=== PATIENT | male | born 1965 | race African-American/Black ===

== ENCOUNTER 2023-11-03 11:28 | Outpatient (CLI) | payer MEDICAID, SELFPAY | END 2023-11-03 23:59 | disposition home or self-care (01) | LOC: SDC 11:34 | PROVIDERS: PCP Nurse Practitioner Family; Referring Provider Internal Medicine Gastroenterology; Visit Provider Internal Medicine Gastroenterology | PROC: 0DJD8ZZ Inspection of Lower Intestinal Tract, Via Natural or Artificial Opening Endoscopic (ICD-10-PCS; CPT 45378; principal; 2023-06-09 09:10) | DX: Z01.818 Encounter for other preprocedural examination (principal) ==

== ENCOUNTER 2024-04-14 06:14 | Observation (INO) | payer MEDICAID, SELFPAY ==
[2024-04-14] VITALS (9 sets, daily range): BP systolic 125–159; BP diastolic 74–106; PULSE 78–110; RESP 16–19; TEMP 36.1–37.1; O2SAT 97–100; BMI 23.7; BMI 23.3
--- NOTE | 2024-04-14 06:25 | EX.ED.SAOD ---
HPI History of Present Illness Chief Complaint: Substance Abuse Informant: patient Narrative Narrative: 58-year-old male states he is requesting inpatient detox for heroin abuse/addiction. He states he has been using several times a day for the past 4 months, every day. He also occasionally uses THC and less commonly alcohol, used to use alcohol more heavily but states it hurts his abdomen now whenever he drinks so he stopped. He denies any blood in the stools, recent illness, fevers or chills. His last use of heroin was yesterday, he states he is feeling shaky and nauseated and a little sweaty. [facility] Medical History Loss of hearing Partial edentulism, class III Marijuana use Alcohol use Arthritis Syncope Heartburn Smoker History of edema Neuropathy Hepatitis C Essential hypertension Home Medications ?Medication ?Instructions ?Recorded ?Last Taken ?Type lisinopril 10 mg tablet 10 mg PO DAILY #30 tabs 03/08/14 Unknown Rx albuterol sulfate 90 mcg/actuation 2 puff inhalation Q4-6H PRN 05/06/23 Unknown History aerosol inhaler shortness of breath or wheezing amlodipine 10 mg tablet 10 mg PO DAILY 05/06/23 Unknown History loratadine 10 mg tablet 10 mg PO DAILY 05/06/23 Unknown History losartan 100 1 tab PO DAILY 05/06/23 Unknown History mg-hydrochlorothiazide 25 mg tablet Allergy/AdvReac Type Severity Reaction Status Date / Time No Known Allergies Allergy Verified 04/14/24 06:15 Surgical History History of dental surgery Social History household members: none current occupational status: unemployed Smoking Status: Current every day smoker tobacco type: cigarettes ROS ROS ED Constitutional Constitutional ED: Reports sweats; Denies chills or fever(s) Eyes Eyes: Denies change in vision or diplopia ENT ENT ED: Denies rhinorrhea or sore throat Cardiovascular Cardiovascular: Denies chest pain or palpitations Respiratory/Chest Respiratory/Chest: Denies cough or dyspnea Gastrointestinal Gastrointestinal: Reports nausea; Denies abdominal pain, diarrhea or vomiting Genitourinary Genitourinary ED: Denies dysuria or hematuria Musculoskeletal Musculoskeletal: Denies back pain or neck pain Integumentary Denies abscess or rash Neurologic Neurologic: Denies headache(s), paresthesias or weakness Psychiatric Psychiatric: Reports anxiety; Denies suicidal thoughts EXAM Physical Exam Const Vital Signs: 04/14/24 06:15 04/14/24 07:15 04/14/24 07:21 Temperature 97.4 F L 97.9 F Temperature Source Temporal Pulse Rate 107 H 78 78 Respiratory Rate 19 H 17 18 Blood Pressure 155/85 H 138/83 H 138/83 H Blood Pressure Mean 108 101 101 Pulse Ox 100 98 97 Oxygen Delivery Method Room Air Room Air Positive well nourished and well developed General Appearance ED: well developed and NAD HEENT Reports moist mucous membranes normocephalic and atraumatic Eyes PERRL and EOMs intact bilaterally Neck full ROM and supple Resp normal respiratory effort and clear to auscultation bilaterally Cardio regular rate, regular rhythm and no murmurs Cardio Narrative: Mild tachycardia GI non-tender and non-distended Auscultation: normoactive bowel sounds Palpation: soft Back/Spine no CVA tenderness General Back: other FROM Extremity normal to inspection General Extremety ED: Negative for edema, pulses abnormal or tenderness General Extremity: Negative for edema or pulses abnormal Neuro oriented x3, CN's II-XII intact bilaterally and no sensory deficits noted Sensorium / Orientation: awake and alert Motor Exam: strength 5/5 throughout Psych Mood & Affect: anxious Skin no rashes or lesions noted and no wounds MDM MDM MDM Narrative Medical decision making narrative: Labs and toxicology obtained and reviewed. Patient given Zofran and some tramadol for his withdrawal symptoms. Will discuss with hospitalist for admission to detox if bed available. Lab Data Attestation: I reviewed the patient's lab results. Labs: Laboratory Results - last 24 hr 04/14/24 06:45 WBC 9.0 RBC 5.55 Hgb 15.8 Hct 47.1 MCV 84.9 MCH 28.5 MCHC 33.5 RDW Std Deviation 38.7 RDW Coeff of [place] 12.6 Plt Count 358 MPV 10.0 Immature Gran % (Auto) 0.300 Neut % (Auto) 52.2 Lymph % (Auto) 33.8 [place] % (Auto) 9.4 Eos % (Auto) 3.9 Baso % (Auto) 0.4 Absolute Neuts (auto) 4.7 Absolute Lymphs (auto) 3.03 Nucleated RBC % 0 PT 13.4 INR 1.0 Sodium 139 Potassium 3.1 L Chloride 101 Carbon Dioxide 24.3 Anion Gap 14 BUN 14 Creatinine 1.06 Estim Creat Clear Calc 95.53 Est GFR (MDRD) Non-Af 82 BUN/Creatinine Ratio 13.6 Glucose 117 H Calcium 10.3 Total Bilirubin 0.43 AST 64 H ALT 41 Alkaline Phosphatase 106 Total Protein 8.9 H Albumin 4.8 Globulin 4.1 Albumin/Globulin Ratio 1.2 Ethyl Alcohol < 10.1 Management Discussion w/another healthcare provider: Hospitalist Discharge Plan Dx/Rx/DC Orders Clinical Impression: Opiate dependence, Opiate withdrawal Disposition Disposition: Acute Care Hospital [facility], [place]
[2024-04-14] MEDS: traMADol 50 MG Tablet 100 MG PO (06:54)
[2024-04-14] MEDS: Ondansetron ODT 4 MG Tablet 8 MG PO (06:54)
[2024-04-14 06:58] LABS: Absolute Lymphocyte Count 3.03 X10^3/uL (0.83-4.51); Absolute Neutrophil Count 4.7 X10^3/uL (2.0-7.7); Basophil# 0.04 X10^3/uL; Basophil% 0.4 % (0-1); Eosinophil# 0.35 X10^3/uL; Eosinophils% 3.9 % (0-5); Hematocrit 47.1 % (40-54); Hemoglobin 15.8 g/dL (13.0-16.5); Lymphocyte # 3.03 X10^3/ul (0.83-4.51); Lymphocyte % 33.8 % (19-41); Mean Corp Hgb Conc 33.5 g/dL (32-36); Mean Corpuscular Hgb 28.5 pg (27.0-32.0); Mean Corpuscular Volume 84.9 fL (80-94); Monocyte# 0.84 X10^3/uL; Monocyte% 9.4 % (0-10); NRBC Flagged by Analyzer 0 % (0-5); Neutrophil # 4.67 X10^3/uL (2.7-7.7); Neutrophil % 52.2 % (47-70); Platelet Count 358 K/mm3 (150-450); RBC Distribution Width CV 12.6 % (11.6-14.6); RBC Distribution Width SD 38.7 fl (35.1-43.9); Red Blood Count 5.55 M/mm3 (4.6-6.2)
[2024-04-14 07:07] LABS: Prothrombin Time (Protime)PT. 13.4 SECONDS (11.7-14.9)
--- NOTE | 2024-04-14 07:23 | PCM.HP.STD ---
HPI - General General Date of Admission: 04/14/24 Date of Service: 04/14/24 Chief Complaint: Desire for detoxification HPI Narrative JENN ALDANA, is a 58 M past medical history signal for essential hypertension, mild intermittent asthma opioid dependence who presented to the emergency department with desire for detoxification. Per patient he has been using heroin he snorts. 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 Patient did complain of feeling weak and lightheaded also did complain of chills. Denied any nausea no vomiting no abdominal pain. An assessment of opioid dependence at risk for withdrawal made admitted to regular nursing floor for further manage [facility] Medical History Loss of hearing Partial edentulism, class III Marijuana use Alcohol use Arthritis Syncope Heartburn Smoker History of edema Neuropathy Hepatitis C Essential hypertension Home Medications ?Medication ?Instructions ?Recorded ?Last Taken ?Type lisinopril 10 mg tablet 10 mg PO DAILY #30 tabs 03/08/14 04/13/24 Rx albuterol sulfate 90 mcg/actuation 2 puff inhalation Q4-6H PRN 05/06/23 04/13/24 History aerosol inhaler shortness of breath or wheezing amlodipine 10 mg tablet 10 mg PO DAILY 05/06/23 04/13/24 History loratadine 10 mg tablet 10 mg PO DAILY PRN allergy symptoms 05/06/23 Unknown History losartan 100 1 tab PO DAILY 05/06/23 04/13/24 History mg-hydrochlorothiazide 25 mg tablet cholecalciferol (vitamin D3) 25 25 mcg PO DAILY 04/14/24 04/13/24 History mcg (1,000 unit) capsule Allergy/AdvReac Type Severity Reaction Status Date / Time No Known Allergies Allergy Verified 04/14/24 06:15 Surgical History History of dental surgery Social History household members: none current occupational status: unemployed Smoking Status: Current every day smoker tobacco type: cigarettes ROS ROS Narrative GENERAL: chills, night sweats, HEENT: denies headache, sinus congestion, RESPIRATORY: denies cough, sputum production, CARDIAC: denies chest pain, palpitations, orthopnea, GASTROINTESTINAL: denies abdominal pain, nausea, GENITOURINARY: denies dysuria, urgency, frequency, EXTREMITY: denies swelling MUSCULOSKELETAL: denies current joint pain or tenderness NEUROLOGIC: denies focal numbness, weakness, tingling HEMATOLOGIC: denies easy bruising and/or hemorrhage INTEGUMENT: denies rashes PSYCHIATRIC: denies suicidal or homicidal ideation Vital Signs Vital Signs Vital Signs: 04/14/24 06:15 04/14/24 07:15 04/14/24 07:21 Temperature 97.4 F L 97.9 F Temperature Source Temporal Pulse Rate 107 H 78 78 Respiratory Rate 19 H 17 18 Blood Pressure 155/85 H 138/83 H 138/83 H Blood Pressure Mean 108 101 101 Pulse Ox 100 98 97 Oxygen Delivery Method Room Air Room Air Weight Weight: 88.4 kg Body Mass Index (BMI) 23.7 Physical Exam Narrative GENERAL: cooperative HEENT: Atraumatic; normocephalic EYES; Anicteric, Normal Conjunctiva NECK; supple, normal thyroid, RESPIRATORY: Diminished to auscultation CARDIOVASCULAR: Regular S1 S2, GI: soft, normoactive bowel sounds, : No Renal angle tenderness; EXTREMITIES: No edema, no clubbing, MUSCULOSKELETAL: no muscle wasting NEURO: Awake; no lateralizing signs. SKIN: No Rash PSYCH; Flat affect Results Lab / Micro Data 04/14/24 06:45 04/14/24 06:45 Labs: Laboratory Results - last 24 hr 04/14/24 06:45: WBC 9.0, RBC 5.55, Hgb 15.8, Hct 47.1, MCV 84.9, MCH 28.5, MCHC 33.5, RDW Std Deviation 38.7, RDW Coeff of [place] 12.6, Plt Count 358, MPV 10.0, Immature Gran % (Auto) 0.300, Neut % (Auto) 52.2, Lymph % (Auto) 33.8, [place] % (Auto) 9.4, Eos % (Auto) 3.9, Baso % (Auto) 0.4, Absolute Neuts (auto) 4.7, Absolute Lymphs (auto) 3.03, Nucleated RBC % 0, PT 13.4, INR 1.0 Assessment & Plan Assessment/Plan (1) Opiate withdrawal: PLAN: Plan Patient is a 58-year-old gentleman presented with acute opioid withdrawal 1. Acute opioid withdrawal - Patient has been admitted to regular nursing floor, managed buprenorphine taper along with other adjunctive medications for medical stabilization 2. Hypertension ? Blood pressure controlled, home medications continued with dose adjustment as needed 3. History of hep C ? Per patient completed treatment 4. Tobacco dependence ? Counseled on cessation, offered nicotine patch for tobacco cravings 5. Mild intermittent asthma ? Aerosol treatments as needed 6. DVT prophylaxis ? Low risk to encourage elevation Time spent in the patient's overall evaluation,decision-making process, review of diagnostic data, adjustment of management, discussion with other providers, nursing nursing and ancillary staff involved in patient's care documentation, 60 Minutes Advance planning; did discuss with the patient and family regarding advanced directives as well as CODE STATUS. Did explain the various scenarios involved ( FULL CODE, DNR CCA, DNR CCA with no intubation, and DNR CC and what each meant) patient elected to remain full code with CPR intubation if needed. Order was placed. Time spent on discussion 16 minutes. Charges/Coding Multi Select Codes Visit Charges Visit Charges: 98620 Init Hosp Hospitalists' Procedures Procedures: 82205 Advncd Care Plan 30 Min
[2024-04-14 07:26] LABS: Alcohol, Blood (Medical)-Serum < 10.1 mg/dL (<=10.0)
[2024-04-14 07:27] LABS: ALB/GLOB Ratio 1.2 RATIO (0.9-2.4); AST(SGOT) 64 U/L (<=37); Alanine Aminotransfer ALT/SGPT 41 U/L (<=46); Albumin, Serum 4.8 g/dL (3.5-5.0); Alkaline Phosphatase 106 U/L (40-129); Anion Gap 14 (5-15); BUN 14 mg/dL (4-19); BUN/Creat Ratio 13.6 RATIO (10-20); Calcium,Total 10.3 mg/dL (7.6-11.0); Carbon Dioxide 24.3 mmol/L (21.0-32.0); Chloride 101 mmol/L (98-108); Creatinine, Serum 1.06 mg/dL (0.70-1.20); EST Glomerular Filtration Rate 82 (>60); Estimated Creatinine Clearance 95.53 ml/min (50-250); Globulin 4.1 g/dL (2.2-4.2); Glucose 117 mg/dL (70-99); Potassium 3.1 mmol/L (3.3-5.1); Protein, Total 8.9 g/dL (5.9-8.4); Sodium Level 139 mmol/L (133-145); Total Bilirubin 0.43 mg/dL (0.00-1.30)
[2024-04-14 08:12] LABS: Amphetamine Urine NEGATIVE (<1000 ng/mL); Barbiturate Urine NEGATIVE (< 200 ng/mL); Benzodiazepine Urine NEGATIVE (< 200 ng/mL); Buprenorphine Urine NEGATIVE (< 200 ng/mL); Cocaine Urine PRESUMPTIVE POSITIVE (< 300 ng/mL); Fentanyl, Urine PRESUMPTIVE POSITIVE; Methadone Urine NEGATIVE (< 300 ng/mL); Opiates Urine PRESUMPTIVE POSITIVE (< 300 ng/mL); Oxycodone, Urine NEGATIVE (< 100 ng/mL); PCP Urine NEGATIVE (< 25 ng/mL); THC Urine PREUMTIVE POSITIVE (< 50 ng/mL)
[2024-04-14] MEDS: Lactated Ringers 1,000 ML 125 ML IV (11:00)
[2024-04-14] MEDS: Losartan Potassium 100 MG Tablet PO (11:04)
[2024-04-14] MEDS: amLODIPine 10 MG Tablet PO (11:04)
[2024-04-14] MEDS: hydroCHLOROthiazide 25 MG Tablet PO (11:04)
[2024-04-14] MEDS: Loratadine 10 MG Tablet PO (11:05)
[2024-04-14] MEDS: Gabapentin 300 MG Capsule PO ×2 (12:56→22:22)
[2024-04-14] MEDS: Acetaminophen 500 MG Tablet PO (12:56)
[2024-04-14] MEDS: cloNIDine HCl 0.1 MG Tablet PO (12:57)
[2024-04-14] MEDS: Ondansetron 8 MG Tablet PO (14:47)
[2024-04-14] MEDS: Methocarbamol 750 MG Tablet PO ×2 (14:47→20:53)
[2024-04-14] MEDS: hydrOXYzine PAM 25 MG Capsule 50 MG PO ×2 (14:47→20:52)
--- NOTE | 2024-04-14 15:08 | ADDICTION ---
Pt was met with to complete the ramp assessment, AUDIT, DUDIT, ASAM, CLARENCE, D/C Plan, and MSE. Pt reports he has been struggling with KELLY for his entire adult life and he has been in previous residential placement in [facility] and [facility] but he was unable to maintain sobriety after tx. Pt was engaged in d/c planning but pt was distracted d/t severe stomach pains and ongoing w/d sxs. Pt states that he is not interested in residential tx at this time, and he was provided information for accessing residential tx if he changes his mind. Pt was given information on MAT and OP tx options and pt reports a desire to explore MAT buprenorphine tx. Pt was referred to Dr. Bhakta and pt will be notified once his appt is able to be scheduled. Pt wants to f/u with IOP at [facility] and pt was informed that he can come to [facility], once he is d/c'd from [facility], for an assessment Mon-Fri between 8am and 4pm. Pt reports he has safe and stable housing in [place] and he denies any psychiatric needs, denies any SI/HI intent or plan, and he appears motivated for tx but struggling with cravings and w/d sxs that interfere with fx.
[2024-04-14] MEDS: Buprenorphine HCl 2 MG TAB.SUBL SL (17:50)
[2024-04-14] MEDS: traZODone 100 MG Tablet PO (22:22)
[2024-04-14] MEDS: Ibuprofen 600 MG Tablet PO (22:22)
[2024-04-14] MEDS: Dicyclomine 10 MG Capsule 20 MG PO (22:23)
[2024-04-15] MEDS: Buprenorphine HCl 2 MG TAB.SUBL SL ×3 (01:41→18:19)
[2024-04-15] MEDS: cloNIDine HCl 0.1 MG Tablet PO (01:45)
[2024-04-15] MEDS: Ondansetron 8 MG Tablet PO (01:45)
[2024-04-15 01:51] VITALS: BP 134/83; PULSE 113; RESP 16; TEMP 37.1; O2SAT 99
--- NOTE | 2024-04-15 07:27 | PCM.PN.HOSP ---
Reason for Visit Reason for Visit: Diagnoses Opioid use, unspecified with withdrawal (04/14/24) Subjective Subjective Patient seems symptoms markedly improved. Objective Data Objective Data Vital Signs: Vital Signs Temp Pulse Resp BP Pulse Ox O2 Del Method 98.8 F 113 H 16 134/83 H 99 Room Air 04/15/24 01:51 04/15/24 01:51 04/15/24 01:51 04/15/24 01:51 04/15/24 01:51 04/15/24 01:51 Oxygen Delivery Method Room Air Weight: 84.822 kg Body Mass Index (BMI) 23.3 Intake & Output: Intake and Output for Last 24 Hours 04/13/24 04/14/24 04/16/24 23:59 23:59 00:59 Intake Total 1530.00 / 1530.00 600 / 600 Balance 1530.00 / 1530.00 600 / 600 Lab / Micro Data 04/14/24 06:45 04/14/24 06:45 Labs: Laboratory Results - last 24 hr 04/14/24 06:45: WBC 9.0, RBC 5.55, Hgb 15.8, Hct 47.1, MCV 84.9, MCH 28.5, MCHC 33.5, RDW Std Deviation 38.7, RDW Coeff of [place] 12.6, Plt Count 358, MPV 10.0, Immature Gran % (Auto) 0.300, Neut % (Auto) 52.2, Lymph % (Auto) 33.8, [place] % (Auto) 9.4, Eos % (Auto) 3.9, Baso % (Auto) 0.4, Absolute Neuts (auto) 4.7, Absolute Lymphs (auto) 3.03, Nucleated RBC % 0, PT 13.4, INR 1.0, Sodium 139, Potassium 3.1 L, Chloride 101, Carbon Dioxide 24.3, Anion Gap 14, BUN 14, Creatinine 1.06, Estim Creat Clear Calc 95.53, Est GFR (MDRD) Non-Af 82, BUN/Creatinine Ratio 13.6, Glucose 117 H, Calcium 10.3, Total Bilirubin 0.43, AST 64 H, ALT 41, Alkaline Phosphatase 106, Total Protein 8.9 H, Albumin 4.8, Globulin 4.1, Albumin/Globulin Ratio 1.2, Urine Opiates Screen PRESUMPTIVE POSITIVE, U Buprenorphine Qual NEGATIVE, Ur Oxycodone Screen NEGATIVE, Urine Methadone Screen NEGATIVE, Urine Fentanyl Screen PRESUMPTIVE POSITIVE, Ur Barbiturates Screen NEGATIVE, Ur Phencyclidine Scrn NEGATIVE, Ur Amphetamines Screen NEGATIVE, U Benzodiazepines Scrn NEGATIVE, Urine Cocaine Screen PRESUMPTIVE POSITIVE, U Cannabinoids Screen PREUMTIVE POSITIVE, Ethyl Alcohol < 10.1 Physical Exam Narrative GENERAL: cooperative HEENT: Atraumatic; normocephalic EYES; Anicteric, Normal Conjunctiva NECK; supple, normal thyroid, RESPIRATORY: Diminished to auscultation CARDIOVASCULAR: Regular S1 S2, GI: soft, normoactive bowel sounds, : No Renal angle tenderness; EXTREMITIES: No edema, no clubbing, MUSCULOSKELETAL: no muscle wasting NEURO: Awake; no lateralizing signs. SKIN: No Rash PSYCH; Flat affect Assessment & Plan Assessment/Plan (1) Opiate withdrawal: PLAN: Plan Patient is a 58-year-old gentleman presented with acute opioid withdrawal 1. Acute opioid withdrawal - Patient has been admitted to regular nursing floor, managed buprenorphine taper along with other adjunctive medications for medical stabilization ? 04/15/2024; per patient symptoms improving we will continue with current Subutex taper and obtain [facility] counseling services consultation in a.m. 2. Hypertension ? Blood pressure controlled, home medications continued with dose adjustment as needed 3. History of hep C ? Per patient completed treatment 4. Tobacco dependence ? Counseled on cessation, offered nicotine patch for tobacco cravings 5. Mild intermittent asthma ? Aerosol treatments as needed 6. DVT prophylaxis ? Low risk to encourage elevation Time spent in the patient's overall evaluation,decision-making process, review of diagnostic data, adjustment of management, discussion with other providers, nursing nursing and ancillary staff involved in patient's care documentation, 36 minutes Charges/Coding Visit Charges Inpatient E&M: 85875 Subs Hosp L2
[2024-04-15 09:45] VITALS: BP 134/79; PULSE 84; RESP 16; TEMP 36.8; O2SAT 98
[2024-04-15] MEDS: Loratadine 10 MG Tablet PO (09:51)
[2024-04-15] MEDS: hydroCHLOROthiazide 25 MG Tablet PO (09:52)
[2024-04-15] MEDS: Losartan Potassium 100 MG Tablet PO (09:52)
[2024-04-15] MEDS: amLODIPine 10 MG Tablet PO (09:52)
[2024-04-15 15:45] VITALS: BP 132/78; PULSE 96; RESP 16; TEMP 36.9; O2SAT 98
[2024-04-15] MEDS: Methocarbamol 750 MG Tablet PO (18:19)
[2024-04-15 21:33] VITALS: BP 129/74; PULSE 97; RESP 16; TEMP 36.7; O2SAT 98
[2024-04-15] MEDS: Gabapentin 300 MG Capsule PO (21:39)
[2024-04-15] MEDS: Mag Hydrox/Al Hydrox/Simeth 30 ML UDC PO (22:29)
[2024-04-16 02:48] VITALS: BP 131/88; PULSE 85; RESP 16; TEMP 37.1; O2SAT 98
[2024-04-16] MEDS: Buprenorphine HCl 2 MG TAB.SUBL SL ×2 (02:49→08:46)
[2024-04-16] MEDS: traZODone 100 MG Tablet PO (02:58)
--- NOTE | 2024-04-16 07:54 | PCM.PN.HOSP ---
Reason for Visit Reason for Visit: Diagnoses Opioid use, unspecified with withdrawal (04/14/24) Subjective Subjective Patient seen admit to improved symptoms and is requesting to be discharged home Objective Data Objective Data Vital Signs: Vital Signs Temp Pulse Resp BP Pulse Ox O2 Del Method 98.8 F 85 16 131/88 H 98 Room Air 04/16/24 02:48 04/16/24 02:48 04/16/24 02:48 04/16/24 02:48 04/16/24 02:48 04/16/24 02:48 Oxygen Delivery Method Room Air Weight: 84.822 kg Body Mass Index (BMI) 23.3 Intake & Output: Intake and Output for Last 24 Hours 04/14/24 04/16/24 04/16/24 23:59 00:59 23:59 Intake Total 1530.00 / 1530.00 1020 / 1020 Balance 1530.00 / 1530.00 1020 / 1020 Lab / Micro Data 04/14/24 06:45 04/14/24 06:45 Physical Exam Narrative GENERAL: cooperative HEENT: Atraumatic; normocephalic EYES; Anicteric, Normal Conjunctiva NECK; supple, normal thyroid, RESPIRATORY: Diminished to auscultation CARDIOVASCULAR: Regular S1 S2, GI: soft, normoactive bowel sounds, : No Renal angle tenderness; EXTREMITIES: No edema, no clubbing, MUSCULOSKELETAL: no muscle wasting NEURO: Awake; no lateralizing signs. SKIN: No Rash PSYCH; Flat affect Assessment & Plan Assessment/Plan (1) Opiate withdrawal: PLAN: Plan Patient is a 58-year-old gentleman presented with acute opioid withdrawal 1. Acute opioid withdrawal - Patient has been admitted to regular nursing floor, managed buprenorphine taper along with other adjunctive medications for medical stabilization ? 04/15/2024; per patient symptoms improving we will continue with current Subutex taper and obtain 180 counseling services consultation in a.m. ? 04/16/2024; patient symptoms continue to improve and is requesting to be discharged 2. Hypertension ? Blood pressure controlled, home medications continued with dose adjustment as needed 3. History of hep C ? Per patient completed treatment 4. Tobacco dependence ? Counseled on cessation, offered nicotine patch for tobacco cravings 5. Mild intermittent asthma ? Aerosol treatments as needed 6. DVT prophylaxis ? Low risk to encourage elevation Time spent in the patient's overall evaluation,decision-making process, review of diagnostic data, adjustment of management, discussion with other providers, nursing nursing and ancillary staff involved in patient's care documentation, 36 minutes
--- NOTE | 2024-04-16 07:55 | PCM.DC.SUM ---
Providers Date of Admission: 04/14/24 Date of Discharge: 04/16/24 Primary Care Physician: No Primary Care Phys Reason For Visit: CUTE OPOID WITHDRAWAL Diagnosis Discharge Diagnosis (1) Opiate withdrawal: Status: Acute Code(s): F11.93 - Opioid use, unspecified with withdrawal Plan Patient is a 58-year-old gentleman presented with acute opioid withdrawal 1. Acute opioid withdrawal - Patient has been admitted to regular nursing floor, managed buprenorphine taper along with other adjunctive medications for medical stabilization ? 04/15/2024; per patient symptoms improving we will continue with current Subutex taper and obtain 180 counseling services consultation in a.m. ? 04/16/2024; patient symptoms continue to improve and is requesting to be discharged 2. Hypertension ? Blood pressure controlled, home medications continued with dose adjustment as needed 3. History of hep C ? Per patient completed treatment 4. Tobacco dependence ? Counseled on cessation, offered nicotine patch for tobacco cravings 5. Mild intermittent asthma ? Aerosol treatments as needed 6. DVT prophylaxis ? Low risk to encourage elevation Time spent in the patient's overall evaluation,decision-making process, review of diagnostic data, adjustment of management, discussion with other providers, nursing nursing and ancillary staff involved in patient's care documentation, 36 minutes Medications at Discharge Home Medications albuterol sulfate 90 mcg/actuation aerosol inhaler 2 puff inhalation Q4-6H PRN shortness of breath or wheezing 05/06/23 loratadine 10 mg tablet 10 mg PO DAILY PRN allergy symptoms 05/06/23 cholecalciferol (vitamin D3) 25 mcg (1,000 unit) capsule 25 mcg PO DAILY 04/14/24 amlodipine 10 mg tablet 10 mg PO DAILY #90 tabs 04/16/24 hydrochlorothiazide 25 mg tablet 25 mg PO DAILY #90 tabs 04/16/24 losartan 100 mg tablet 100 mg PO DAILY #90 tabs 04/16/24 Physical Exam Narrative GENERAL: cooperative HEENT: Atraumatic; normocephalic EYES; Anicteric, Normal Conjunctiva NECK; supple, normal thyroid, RESPIRATORY: Diminished to auscultation CARDIOVASCULAR: Regular S1 S2, GI: soft, normoactive bowel sounds, : No Renal angle tenderness; EXTREMITIES: No edema, no clubbing, MUSCULOSKELETAL: no muscle wasting NEURO: Awake; no lateralizing signs. SKIN: No Rash PSYCH; Flat affect Weight / BMI Weight Weight: 84.822 kg Body Mass Index (BMI) 23.3 ABG / Lab / Microbiology Data 04/14/24 06:45 04/14/24 06:45 D/C Instructions Discharge Diet: No restrictions Discharge Activity: Return to Normal Activity Call your doctor if you observe: Fever of 101 or Higher, Shortness of breath, Fainting spells and Chest pain DC O2, CPAP, BIPAP Needs Home O2 Discharge instructions: No Meaningful Use Info Meaningful Use Meaningful Use Diagnoses (Choose all that apply): None applicable Ischemic Stroke Statin Dosing Therapy Reference: STATIN DOSE THERAPY REFERENCE: * Patients > 75 years receive moderate or high dose statin therapy. * Patients 75 years or YOUNGER should receive HIGH intensity statin dose unless contraindicated. You will be required to document reason for non-treatment if statin daily dose does not meet guidelines. HIGH DOSE STATIN THERAPY DAILY Atorvastatin > than or = to 40 mg Rosuvastatin > than or = to 20 mg Amlodipine + Atorvastatin > than or = to 2.5/40 mg Ezetimibe + Simvastatin 10/80 mg Simvastatin 80mg Discharge Plan Admission Admit Date/Time: 04/14/24 07:19 Attending Provider: Manuel Lockwood Primary Care Provider: Care Physician,Meghan Primary Discharge Orders/Prescriptions Prescriptions: New hydrochlorothiazide 25 mg Tablet 25 mg PO DAILY Qty: 90 0RF losartan 100 mg Tablet 100 mg PO DAILY Qty: 90 0RF Continued albuterol sulfate 90 mcg/actuation HFA aerosol inhaler 2 puff inhalation Q4-6H PRN (Reason: shortness of breath or wheezing) loratadine 10 mg tablet 10 mg PO DAILY PRN (Reason: allergy symptoms) Patient Comments: pt ran out and hasnt been taking cholecalciferol (vitamin D3) 25 mcg (1,000 unit) capsule 25 mcg PO DAILY amlodipine 10 mg tablet 10 mg PO DAILY Qty: 90 0RF Discontinued losartan-hydrochlorothiazide 100-25 mg tablet 1 tab PO DAILY lisinopril 10 MG tablet 10 mg PO DAILY Qty: 30 1RF Referrals / Follow Up: Care Physician,Meghan Primary [Primary Care Provider] - Within 2 Weeks Disposition Disposition (needs filled in before D/C Order can be placed): Home, Self Care Charges/Coding Visit Charges Inpatient E&M: 14681 Disch Hosp >30min
[2024-04-16 08:43] VITALS: BP 166/77; PULSE 97; RESP 17; TEMP 36.8; O2SAT 100
[2024-04-16] MEDS: Dicyclomine 10 MG Capsule 20 MG PO (08:44)
[2024-04-16] MEDS: Losartan Potassium 100 MG Tablet PO (08:47)
[2024-04-16] MEDS: amLODIPine 10 MG Tablet PO (08:48)
[2024-04-16] MEDS: hydroCHLOROthiazide 25 MG Tablet PO (08:48)
[2024-04-16] MEDS: Loratadine 10 MG Tablet PO (08:48)
--- NOTE | 2024-04-16 10:40 | CASEMGMT ---
Social Work- SW attempted to complete SDOH, however, pt had requested to leave and was no longer in the room. ISAMAR Mancilla
== END 2024-04-16 10:10 | disposition home or self-care (01) | DRG 773 ==
LOC: ED 06:50 → MS2 04-16 07:57
PROVIDERS: Admitting Provider Internal Medicine; Emergency Provider Emergency Medicine; Visit Provider Internal Medicine
DX: F11.23 Opioid dependence with withdrawal (principal); F17.210 Nicotine dependence, cigarettes, uncomplicated; J45.20 Mild intermittent asthma, uncomplicated; I10 Essential (primary) hypertension; Z79.899 Other long term (current) drug therapy; Z86.19 Personal history of other infectious and parasitic diseases
CPT/HCPCS: 36415; 80053; 80307; 82077; 85025; 85610; 96360; 96361; 99221; 99284; G0378

== ENCOUNTER → 2024-05-28 | Outpatient (CLI) | payer MEDICAID, SELFPAY ==
[2024-05-28 12:45] LABS: Absolute Lymphocyte Count 2.52 X10^3/uL (0.83-4.51); Absolute Neutrophil Count 4.9 X10^3/uL (2.0-7.7); Basophil# 0.05 X10^3/uL; Basophil% 0.6 % (0-1); Eosinophil# 0.18 X10^3/uL; Eosinophils% 2.1 % (0-5); Hematocrit 42.2 % (40-54); Hemoglobin 14.5 g/dL (13.0-16.5); Lymphocyte # 2.52 X10^3/ul (0.83-4.51); Mean Corp Hgb Conc 34.4 g/dL (32-36); Mean Corpuscular Hgb 29.4 pg (27.0-32.0); Mean Corpuscular Volume 85.4 fL (80-94); Mean Platelet Vol. 9.6 fl (6.2-12.0); Monocyte# 0.72 X10^3/uL; Monocyte% 8.6 % (0-10); NRBC Flagged by Analyzer 0 % (0-5); Neutrophil # 4.92 X10^3/uL (2.7-7.7); Neutrophil % 58.5 % (47-70); Platelet Count 310 K/mm3 (150-450); RBC Distribution Width CV 13.9 % (11.6-14.6); RBC Distribution Width SD 42.7 fl (35.1-43.9); Red Blood Count 4.94 M/mm3 (4.6-6.2); White Blood Count 8.4 K/mm3 (4.4-11.0)
[2024-05-28 13:47] LABS: Hemoglobin A1c 5.6 % (<=5.6)
[2024-05-28 13:48] LABS: ALB/GLOB Ratio 1.3 RATIO (0.9-2.4); AST(SGOT) 58 U/L (<=37); Alanine Aminotransfer ALT/SGPT 27 U/L (<=46); Albumin, Serum 4.4 g/dL (3.5-5.0); Alkaline Phosphatase 82 U/L (40-129); Anion Gap 12 (5-15); BUN 15 mg/dL (4-19); BUN/Creat Ratio 16.1 RATIO (10-20); Calcium,Total 10.2 mg/dL (7.6-11.0); Carbon Dioxide 25.1 mmol/L (21.0-32.0); Chloride 105 mmol/L (98-108); Cholesterol 178 mg/dL (<=200); Creatinine, Serum 0.91 mg/dL (0.70-1.20); EST Glomerular Filtration Rate 99 (>60); Globulin 3.5 g/dL (2.2-4.2); Glucose 93 mg/dL (70-99); High Density Lipoprotein 49 mg/dL; Low Density Lipoprotein Calc. 115 mg/dL; Potassium 3.5 mmol/L (3.3-5.1); Protein, Total 7.9 g/dL (5.9-8.4); Sodium Level 142 mmol/L (133-145); Total Bilirubin 0.33 mg/dL (0.00-1.30); Triglycerides 69 mg/dL; Very Low Density Lipoprotein 14 mg/dL (5-40); Vitamin B12 515 pg/mL (180-914); Vitamin D,25 Hydroxy 29.8 ng/mL (30-100)
== END | disposition home or self-care (01) ==
LOC: VSLAB 09:23
PROVIDERS: PCP Family Medicine; Visit Provider Family Medicine
DX: I10 Essential (primary) hypertension (principal); G62.9 Polyneuropathy, unspecified; E55.9 Vitamin D deficiency, unspecified
CPT/HCPCS: 36415; 80053; 80061; 82306; 82607; 83036; 85025